=== PATIENT | male | born 1965 | race African-American/Black ===

== ENCOUNTER 2023-03-21 15:23 | Emergency (ER) | payer MEDICARE ==
[~2023-03-21] VITALS: Ht 170.2 cm; Wt 76.8 kg
[2023-03-21 16:10] VITALS: TEMP 98.1
[2023-03-21] MEDS ORDERED: AMLO5TAB66 PO (16:13)
[2023-03-21 16:54] LABS: BASOPHILS % (AUTO) 0.7 % (0.0-2.0); EOSINOPHILS % (AUTO) 1.1 % (1.0-6.0); HEMATOCRIT 40.7 % (41-53); HEMOGLOBIN 14.3 g/dL (13.5-17.5); LYMPHOCYTES # (AUTO) 1.7 K/uL (1.0-4.8); LYMPHOCYTES % (AUTO) 37.8 % (22.0-44.0); MEAN CORPUSCULAR HEMOGLOBIN 36.1 pg (26.0-34.0); MEAN CORPUSCULAR HGB CONC 35.2 G/dL (31.0-37.0); MEAN CORPUSCULAR VOLUME 103 fL (80-100); MONOCYTES # (AUTO) 0.4 K/uL (0.1-1.0); MONOCYTES % (AUTO) 9.9 % (2.0-9.0); NEUTROPHILS # (AUTO) 2.3 K/uL (1.8-7.7); NEUTROPHILS % (AUTO) 50.5 % (40.0-70.0); PLATELET COUNT (AUTO) 204 K/uL (150-450); RED BLOOD CELL COUNT(AUTO) 3.97 MIL/uL (4.50-5.90); RED CELL DISTRIBUTION WIDTH 12.2 % (11.5-14.5); WHITE BLOOD COUNT (AUTO) 4.6 K/uL (4.5-11.0)
[2023-03-21 17:00] LABS: ANION GAP 6 mmol/L (8-16); CALCIUM, TOTAL 9.6 mg/dL (8.8-10.5); CARBON DIOXIDE 31 mmol/L (22-29); CHLORIDE 103 mmol/L (98-107); CREATININE 0.74 mg/dL (0.60-1.30); GLOMERULAR FILTR. RATE CALC > 60 mL/min (>60); GLUCOSE,RANDOM 93 mg/dL (70-110); POTASSIUM 3.8 mmol/L (3.5-5.1); SODIUM SERUM 140 mmol/L (136-145); UREA NITROGEN, BLOOD 9 mg/dL (7-18)
[2023-03-21 17:07] LABS: ALANINE AMINOTRANSFERASE 25 U/L (12-78); ALBUMIN 3.9 g/dL (3.4-5.0); ALKALINE PHOSPHATASE 51 U/L (46-116); ASPARTATE AMINOTRANSFERASE 25 U/L (15-37); TOTAL PROTEIN, SERUM 8.1 g/dL (6.4-8.2)
[2023-03-21] MEDS ORDERED: LOSA-381 PO (17:24)
[2023-03-21] MEDS ORDERED: LOSARTAN POTASSIUM 25 MG TABLET PO ONE (17:30)
[2023-03-21 17:45] VITALS: BP 150/99; PULSE 80; RESP 16
[2023-03-21 17:45] LABS: TROPONIN I-HIGH SENSITIVITY 10 ng/L (<76)
== END 2023-03-21 18:06 | disposition home or self-care (01) ==
LOC: EMS 15:26
DX: I10 Essential (primary) hypertension (principal); Z87.891 Personal history of nicotine dependence
CPT/HCPCS: 80053; 84484; 85025; 93005; 99283

== ENCOUNTER 2023-04-06 18:34 | Emergency (ER) | payer MEDICARE ==
[~2023-04-06] VITALS: Ht 170.2 cm; Wt 75.0 kg
[~2023-04-06 18:34] MED LIST: AMLO5TAB66 PO; LOSA-381 PO
[2023-04-06 18:49] VITALS: TEMP 99.3
[2023-04-06 21:21] VITALS: BP 145/84; PULSE 96; RESP 18
[2023-04-06] MEDS ORDERED: IBUP-1493 PO (21:37)
== END 2023-04-06 21:48 | disposition home or self-care (01) ==
LOC: EMS 18:43
DX: I10 Essential (primary) hypertension (principal); Z87.891 Personal history of nicotine dependence
CPT/HCPCS: 99281; 99282; Z7502

== ENCOUNTER 2023-04-23 16:07 | Emergency (ER) | payer MEDICARE ==
[~2023-04-23] VITALS: Ht 170.2 cm; Wt 74.1 kg
[~2023-04-23 16:07] MED LIST changes: +IBUP-1493 PO
[2023-04-23 16:14] VITALS: BP 148/87; PULSE 86; RESP 16; TEMP 98.5
[2023-04-23] MEDS ORDERED: IBUP-1492 PO (17:23)
[2023-04-23] MEDS ORDERED: LOSA-381 PO ×2 (17:23→17:36)
== END 2023-04-23 17:38 | disposition home or self-care (01) ==
LOC: EMS 16:07
DX: I10 Essential (primary) hypertension (principal); G89.29 Other chronic pain; M54.50 Low back pain, unspecified; Z76.0 Encounter for issue of repeat prescription; Z87.891 Personal history of nicotine dependence
CPT/HCPCS: 99281; Z7502